=== PATIENT | female | born 1950 | race Caucasian/White ===

== ENCOUNTER 2017-03-14 20:22 | Emergency (ER) | payer BC ==
[2017-03-14 20:34] VITALS: BP 191/72
[2017-03-14] MEDS ORDERED: Benzonatate CAP* 100 MG PO ONE (20:45)
[2017-03-14] MEDS ORDERED: predniSONE TAB* 20 MG PO ONE (20:45)
[2017-03-14] MEDS ORDERED: Azithromycin TAB* 250 MG PO ONE (20:45)
--- NOTE | 2017-03-14 20:45 | UC ---
Respiratory Complaint HPI - HPI Summary HPI Summary: 66 YEAR OLD FEMALE PRESENTS WITH COMPLAINS OF COUGH AND LOSING HER VOICE. - History of Current Complaint Chief Complaint: UCRespiratory Stated Complaint: COUGH/COLD Time Seen by Provider: 03/14/17 20:38 Hx Obtained From: Patient Onset/Duration: Lasting Days Severity Initially: Moderate Severity Currently: Moderate Pain Scale Used: 0-10 Numeric - 0 Character: Cough: Nonproductive Alleviating Factors: Upright Position Associated Signs And Symptoms: Positive: Wheezing, Nasal Congestion, Sinus Discomfort - Allergies/Home Medications Allergies/Adverse Reactions: Allergies Allergy/AdvReac Type Severity Reaction Status Date / Time Penicillins Allergy Mild Rash Verified 03/14/17 20:34 Home Medications: Home Medications Omeprazole CAP* [Prilosec CAP* 20 MG] 20 mg 03/14/17 [History] PMH/Surg Hx/FS Hx/Imm Hx - Surgical History Surgical History: None Surgery Procedure, Year, and Place: TUBALIGATION. pilonidal CYST - Social History Alcohol Use: Rare Substance Use Type: None Smoking Status (MU): Current Every Day Smoker Type: Cigarettes Amount Used/How Often: ~1 PPD Length of Time of Smoking/Using Tobacco: 43 YEARS Have You Smoked in the Last Year: Yes - Immunization History Most Recent Influenza Vaccination: 11/2016 Most Recent Pneumonia Vaccination: utd Review of Systems Constitutional: Negative Skin: Negative Eyes: Negative ENT: Sore Throat, Nasal Discharge, Sinus Congestion, Sinus Pain/Tenderness Respiratory: Cough Cardiovascular: Negative Gastrointestinal: Negative Genitourinary: Negative Motor: Negative Neurovascular: Negative Musculoskeletal: Negative Neurological: Negative Psychological: Negative All Other Systems Reviewed And Are Negative: Yes Physical Exam Triage Information Reviewed: Yes Vital Signs: Initial Vital Signs Temp 36.4 C 03/14/17 20:23 Pulse 112 03/14/17 20:23 Resp 16 03/14/17 20:23 BP 191/72 03/14/17 20:23 Pulse Ox 98 03/14/17 20:23 Vital Signs Reviewed: Yes Eye Exam: Normal ENT: Positive: Pharyngeal erythema, Nasal congestion, Nasal drainage, Sinus tenderness Dental Exam: Normal Neck exam: Normal Neck: Positive: 1 Respiratory Exam: Normal Respiratory: Positive: Normal breath sounds Cardiovascular Exam: Normal Abdominal Exam: Normal Musculoskeletal Exam: Normal Neurological Exam: Normal Psychological Exam: Normal Skin Exam: Normal UC Diagnostic Evaluation - Laboratory O2 Sat by Pulse Oximetry: 98 Respiratory Course/Dx - Differential Dx/Diagnosis Provider Diagnoses: BRONCHITIS. NASAL CONGESTION. WHEEZING Discharge - Discharge Plan Condition: Stable Disposition: HOME Prescriptions: Azithromyxin CARROLL (NF) [Z-Carroll (Zithromax) 250 mg tabs #6] 2 tab PO .TODAY, THEN 1 DAILY #6 tab Benzonatate CAP* [Tessalon 100 MG CAP*] 100 mg PO TID PRN #30 cap PRN Reason: Cough Magic M W2 Kale/Maal/Nyst/Lido* 5 ml SWISH SPIT QID PRN #120 ml PRN Reason: Pain Promethazine-Dm [Promethazine/Dextromethor 6.25-15 mg/5Ml] 1 teasp PO BEDTIME PRN #120 ml PRN Reason: Cough Patient Education Materials: Laryngitis (ED), Acute Bronchitis (ED) Referrals: Louise Hatch MD [Primary Care Provider] -
== END 2017-03-14 20:56 | disposition home or self-care (01) ==
LOC: UCEAST 20:22
DX: J40 Bronchitis, not specified as acute or chronic (principal); R09.81 Nasal congestion; R06.2 Wheezing; J02.9 Acute pharyngitis, unspecified
CPT/HCPCS: 99212; A9270-GY; G0463; J7512